=== PATIENT | female | born 1965 | race Caucasian/White ===

== ENCOUNTER → 2020-05-08 | Outpatient (CLI) | payer OTHER ==
--- NOTE | 2020-05-12 12:04 | NUR ---
I have reviewed the documentation by CHRIS AVILES from 05/08/20 to 05/08/20 and I concur with it. YANY FISHER
== END ==
LOC: M.RAD 04-28 10:00
PROVIDERS: ATTEND Internal Medicine Gastroenterology
DX: R13.10 Dysphagia, unspecified (principal); K44.9 Diaphragmatic hernia without obstruction or gangrene